=== PATIENT | female | born 1955 | race African-American/Black ===

== ENCOUNTER 2016-10-10 15:37 | Emergency (ER) | payer MEDICARE, OTHER ==
[~2016-10-10] VITALS: Ht 152.4 cm; Wt 88.6 kg
[~2016-10-10 15:37] MED LIST: AMLO-511 PO; HYDR12.54 PO; LEVO500 PO
[2016-10-10] MEDS ORDERED: CYCL-375 PO (15:54)
[2016-10-10] MEDS ORDERED: HYDROCODONE/ACETAMINOPHEN 10-325 MG TABLET PO ONE (16:30)
[2016-10-10] MEDS ORDERED: MORPHINE SULFATE 2 MG/ML SYRINGE IM ONE ×2 (17:30→18:45)
[2016-10-10] MEDS ORDERED: ONDANSETRON HCL 4 MG/2 ML VIAL IM ONE (17:30)
[2016-10-10 17:45] VITALS: BP 139/85
== END 2016-10-10 20:10 | disposition home or self-care (01) ==
LOC: EMS 15:39
DX: S33.5XXA Sprain of ligaments of lumbar spine, initial encounter (principal); I10 Essential (primary) hypertension; Z88.2 Allergy status to sulfonamides; Z88.6 Allergy status to analgesic agent; X58.XXXA Exposure to other specified factors, initial encounter; Y93.89 Activity, other specified; Y92.89 Other specified places as the place of occurrence of the external cause; Y99.8 Other external cause status
CPT/HCPCS: 96372; 99284; J2270; J2405

== ENCOUNTER 2017-03-05 11:03 | Emergency (ER) | payer MEDICARE, OTHER ==
[~2017-03-05] VITALS: Ht 160 cm; Wt 90.9 kg
[~2017-03-05 11:03] MED LIST changes: +CYCL10TA7 PO; -LEVO500 PO
[2017-03-05] MEDS ORDERED: ALBUTEROL SULFATE 5 MG/ML 20 ML NEB SOLN [BULK] NEB ONE (11:45)
[2017-03-05] MEDS ORDERED: IPRATROPIUM BROMIDE 0.5 MG/2.5 ML NEB SOLUTION NEB ONE (11:45)
[2017-03-05 13:06] VITALS: BP 138/81
== END 2017-03-05 13:12 | disposition home or self-care (01) ==
LOC: EMS 11:05
DX: R06.02 Shortness of breath (principal); K21.9 Gastro-esophageal reflux disease without esophagitis; I10 Essential (primary) hypertension; R07.2 Precordial pain
CPT/HCPCS: 71020; 93005; 94640; 99284